=== PATIENT | male | born 1950 | race Caucasian/White ===

== ENCOUNTER 2018-11-07 21:27 | Inpatient (IN) ==
[2018-11-08] MEDS ORDERED: NS 500 ML IV ONE ×2 (00:11→12:15)
[2018-11-08] MEDS ORDERED: SODIUM CHLORIDE 0.9% INJ ONE (00:12)
[2018-11-08] MEDS ORDERED: PROTONIX IV ONE (00:12)
[2018-11-08 01:06] LABS: BASO# 0.05 X1000 (0.0-0.2); BASO% 0.2 % (0.0-0.8); EOS# 0.13 X1000 (0.0-0.7); EOS% 0.6 % (0.0-10.0); HEMATOCRIT 20.4 % (42.0-52.0); HEMOGLOBIN 6.4 g/dL (14.0-18.0); IMM GRAN% 0.5 % (0.0-0.5); LYMPH% 13.5 % (20.5-51.1); MCH 26.6 PG (27-31); MCHC 31.4 g/dL (33-37); MCV 84.6 FL (81-99); MONO# 1.95 X1000 (0.11-0.59); MONO% 9.7 % (1.7-9.3); MPV 11.1 FL (7.4-10.4); NEUT# 15.08 X1000 (1.4-6.5); NEUT% 75.5 % (42.2-75.2); PLT 96 X1000 (130-400); RBC 2.41 XMIL (4.7-6.1); RDW 16.8 % (11.5-14.5); WBC 20.01 X1000 (4.8-10.8)
[2018-11-08 01:15] LABS: INR 1.25; PROTIME 16.7 Seconds (11.0-16.0)
[2018-11-08 01:16] LABS: PTT 32.1 Seconds (22.3-41.8)
[2018-11-08 01:45] LABS: ALB/GLOB RATIO 1.1; ALBUMIN 3.2 g/dL (3.5-5.0); CALCIUM 9.9 mg/dL (8.8-10.2); CREATININE 1.6 mg/dL (0.7-1.2); POTASSIUM 4.5 mmol/L (3.5-5.1); TOTAL BILIRUBIN 0.62 mg/dL (0.20-1.00); TOTAL PROTEIN 6.1 g/dL (6.3-8.3)
[2018-11-08] MEDS ORDERED: NS 500 ML ONE ×2 (02:10→11:01)
--- NOTE | 2018-11-08 03:26 | HISTORY AND PHYSICAL ---
PRIMARY CARE PHYSICIAN: Michael Quan MD. CHIEF COMPLAINT: Dark blood x1 day. HISTORY OF PRESENTING ILLNESS: The patient is a 68-year-old male with a history of COPD, CHF, coronary artery disease, diabetes mellitus type 2, who had presented to emergency department with a 1-day history of noticing dark blood in his stools. He states that there was a lot of quantity of it and he felt weak. He stated recently he began drinking heavily again. He was evaluated in the emergency department. Due to his presenting symptoms he will require admission for further management. At the time of my examination he denied any headache, fever, chills, chest pain or shortness of breath, but complained of dark blood and not feeling well. The patient was ordered to also receive 2 units of packed red blood cells. PAST MEDICAL HISTORY: Includes COPD, CHF, coronary artery disease, diabetes mellitus type 2, hyperlipidemia. PAST SURGICAL HISTORY: Coronary bypass, hernia repair, hemorrhoidectomy, tonsillectomy, coronary stent. ALLERGIES: No known drug allergies. CURRENT MEDICATIONS: Include Xanax 1 mg p.o. daily, ferrous sulfate 324 mg p.o. daily, lisinopril 10 mg p.o. daily, metoprolol 50 mg p.o. daily, Nadolol 20 mg p.o. daily, omeprazole 40 mg p.o. daily, pravastatin 20 mg p.o. at bedtime, Sertraline 50 mg p.o. daily, spironolactone 25 mg p.o. daily. SOCIAL HISTORY: A 50+ pack-year history of smoking. History of alcohol abuse. Denies any illicit drug use. FAMILY HISTORY: No history of coronary disease. REVIEW OF SYSTEMS: Fourteen point review of system is as per the HPI. Other systems negative. PHYSICAL EXAMINATION: GENERAL: A cooperative friendly male. He is resting comfortably now. VITAL SIGNS: Temperature is 97.4 degrees, pulse 95, respirations 20, blood pressure 100/53. HEENT: Atraumatic and normocephalic. Extraocular movements intact. PERRLA. NECK: No masses. CHEST: Clear to auscultation. CARDIOVASCULAR: Regular rate and rhythm. ABDOMEN: Soft. Positive bowel sounds. EXTREMITIES: No edema. NEURO: He is awake, alert and oriented x3. GENITOURINARY: No bladder distention. SKIN: Warm. LABORATORIES AND STUDIES: Sodium 138, potassium 4.5, chloride 97, CO2 is 19, BUN is 70, creatinine is 1.6, glucose is 156. WBC 20.01, hemoglobin 6.4, hematocrit 20.4, platelets 96,000. ASSESSMENT: The patient is a 68-year-old male with a history of chronic obstructive pulmonary disease, congestive heart failure, coronary artery disease, diabetes mellitus type 2, who had presented to the emergency department with a 1-day history of having dark blood in his stools. He was evaluated in the emergency department and he was found to be anemic and he was started on blood transfusion. He will require admission for further management. 1. Upper gastrointestinal bleed. 2. Coronary artery disease. 3. Chronic obstructive pulmonary disease. 4. Diabetes mellitus type 2. PLAN: 1. We will admit the patient to medical floor with telemetry. 2. We will keep the patient NPO and continue with blood transfusions. 3. We will consult Gastroenterology. 4. We will continue with DuoNebs p.r.n. 5. We will monitor blood glucose, put the patient on sliding scale insulin regimen. 6. We will put patient on DVT prophylaxis with SCDs. 7. We will continue to follow, reassess and make further recommendation based on the patient's clinical course. cc: Matthew Fitzgerald MD
[2018-11-08] MEDS ORDERED: PROTONIX IV SCH (03:57)
[2018-11-08] MEDS ORDERED: SODIUM CHLORIDE 0.9% INJ SCH (03:57)
--- NOTE | 2018-11-08 06:21 | PROVIDER DOCUMENTATION ---
This chart was entered by Yvonne Sloan Scribe, acting as scribe for Evie Marcano MD. HPI-Abdominal Pain/GI Problem - General Chief Complaint: GI Bleed Stated Complaint: PASSING BLOOD Time Seen by Provider: 11/08/18 00:01 Source: patient Allergies/Adverse Reactions: Patient Allergies Allergy/AdvReac Type Severity Reaction Status Date / Time No Known Allergies Allergy Verified 04/22/15 09:56 Home Medications: Home Medication List Medication Instructions Recorded Confirmed Last Taken Type Ferrous Sulfate 1 tab PO DAILY 04/22/15 06/08/17 06/09/17 05:10 History Lisinopril 10 mg PO DAILY 04/22/15 11/08/18 06/08/17 21:00 History Pravastatin Sodium 20 mg PO HS 04/22/15 11/08/18 06/08/17 21:00 History Sertraline HCl 50 mg PO DAILY 04/22/15 11/08/18 06/09/17 05:10 History Lactulose 30 ml PO BID #473 ml 04/27/15 06/08/17 06/09/17 05:10 Rx Nadolol [Corgard] 20 mg PO DAILY #30 tablet 04/27/15 06/08/17 06/09/17 05:10 Rx Spironolactone [Aldactone] 25 mg PO DAILY #30 tablet 04/27/15 11/08/18 06/09/17 05:10 Rx Alprazolam 1 mg PO DAILY 06/08/17 11/08/18 06/09/17 05:10 History Metoprolol [Lopressor] 50 mg PO DAILY 06/08/17 11/08/18 06/09/17 05:10 History Omeprazole 40 mg PO DAILY 06/08/17 11/08/18 06/09/17 05:10 History Metformin [Glucophage] 500 mg PO WBREAKFAST 11/08/18 11/08/18 Unknown History - History of Present Illness-ABD Nature of Presenting Problems: 68 yom c/o hematemsis and rectal bleeding unsure of when starting. pt has dark, tar stool. pt also rpts falling x 7 today. pt is not good historian. pt has hx of copd, chf, cad. pt is alcoholic 4-5 beers/day. smokes 1/2ppd. pt [facility]. Review of Systems - Adult - REVIEW OF SYSTEMS - ADULT Constitutional: reports: no symptoms reported. denies: chills, fever, fatique Eyes: reports: no symptoms reported Ears, Nose, Mouth & Throat: reports: no symptoms reported. denies: ear pain, nose pain, throat pain Cardiovascular: reports: no symptoms reported. denies: chest pain, heart murmur, poor circulation Respiratory: reports: no symptoms reported. denies: cough, shortness of breath, wheezing Gastrointestinal: reports: see HPI, hematemesis, rectal bleeding. denies: abdom inal pain, constipation, diarrhea Genitourinary: reports: no symptoms reported Musculoskeletal: reports: no symptoms reported Integumentary: reports: no symptoms reported Neurological: reports: no symptoms reported. denies: dizziness/vertigo, headache/migraines, loss of balance Psychiatric: reports: no symptoms reported Endocrine: reports: no symptoms reported Hematologic/Lymphatic: reports: no symptoms reported Allergic/Immunologic: reports: no symptoms reported All Other Systems: Reviewed and Negative Past History - Adult - PAST MEDICAL HISTORY-ADULT Review of Records: reports: Old Records Reviewed, Nursing Assessment Review, Medications Reviewed, Social history reviewed & non-contributory. Major Childhood Illnesses: reports: denies history Cardiovascular: reports: CAD, CHF, HTN Respiratory: reports: COPD Gastrointestinal: reports: denies history Obstetrical/Gynecological: reports: denies history Genitourinary: reports: denies history Musculoskeletal: reports: denies history Neurological: reports: denies history Endocrine/Immune: reports: Diabetes Other Conditions: reports: denies history - PRIOR SURGERIES/PROCEDURES Surgical/Procedure History: reports: cardiac stent, tonsillectomy, hernia repair - IMMUNIZATION STATUS Childhood Immunizations: See Nurse Assessment Flu Vaccine: See Nurse Assessment - FAMILY HISTORY Family History: reviewed, not pertinent - SOCIAL HISTORY Smoking: cigarettes, less than 1 pack/day Provider spent 3-5 mins advising pt. on dangers of tobacco.: Discussed manners to quit use, and f/u contacts for add'l counseling. Substance Use: alcohol Alcohol Use Frequency: every day Number of drinks per typical drinking period:: 3-4 drinks Physical Exam-General - PHYSICAL EXAM-ADULT Initial Vital Signs Reviewed: Yes - CONSTITUTIONAL General Appearance: appears well, alert, no apparent distress, obese. negative: slow to respond, obtunded, combative - EYES Eyes: PERRL/EOMI, pink conjunctivae - HEAD, EARS, NOSE, MOUTH & THROAT HENMT: normocephalic/atraumatic, moist mucous membranes, normal ENT inspection - NECK Neck: non-tender, full range of motion, supple, normal inspection - RESPIRATORY Respiratory: chest non-tender, lungs clear, normal breath sounds - CARDIOVASCULAR Cardiovascular: normal peripheral pulses, regular rate, rhythm - GASTROINTESTINAL (ABDOMEN) Abdominal Exam: normal bowel sounds, non tender, soft, no organomegaly, no pulsatile mass. negative: guarding, rigid, rebound - LYMPHATIC Lymphatic: no adenopathy - MUSCULOSKELETAL Back Exam: normal inspection, no CVA tenderness, no vertebral tenderness Extremity: normal range of motion, non-tender, normal inspection. negative: abnormal NV exam, calf tenderness, deformity Peripheral Pulses: radial (R): 2+, radial (L): 2+ - SKIN Integumentary: normal color, normal turgor, warm/dry - NEUROLOGIC Neurologic: grossly normal, no motor/sensory deficits - PSYCHIATRIC Psych/Mental Status: normal mood/affect, normal thought content, normal thought process, oriented x 3 Progress - PLAN OF CARE/RESULTS Progress/Plan/Lab Results: Vital Signs - 8 hr 11/07/18 21:33 Temperature 97.4 F L Pulse Rate 95 H Respiratory Rate 20 Blood Pressure 100/53 O2 Sat by Pulse Oximetry 98 Orders Category Date Time Status Cardiac Monitoring DIRECTED Care 11/08/18 00:11 Active CBC WITH DIFF [HEME] Stat Lab 11/08/18 00:11 Uncollected COMPREHENSIVE METABOLIC PANEL [CHEM] Stat Lab 11/08/18 00:12 Ordered PT [PROTIME WITH INR] [COAG] Stat Lab 11/08/18 00:15 Uncollected PTT [COAG] Stat Lab 11/08/18 00:14 Uncollected TYPE & SCREEN [BBK] Stat Lab 11/08/18 00:11 Uncollected 0.9% Sodium Chloride Inj [Ns] 500 ml Med 11/08/18 00:11 Discontinued IV As Directed mls/hr Pantoprazole [Protonix] Med 11/08/18 00:12 Discontinued 40 mg IV NOW ONE Sodium Chloride 0.9% Med 11/08/18 00:12 Discontinued 10 ml INJ NOW ONE Result Diagrams: 11/08/18 00:29 11/08/18 00:29 - CONSULTS/PCP/HOSPITALIST Notification #1 *Consult/PCP/Hospitalist*: Dr Fitzgerald Time Discussed: 01:19 Consult Disposition: Admit Departure - Departure Date of Disposition Decision: 11/08/18 Time of Disposition Decision: 01:18 DIAGNOSIS: Upper GI bleed Disposition: ADMITTED INPATIENT 09 Certified Medical Emergency: Emergent Condition: Critical - Critical Care Note This patient required my direct & personal management of CC.: Yes Total Time (mins): 31 Critical Care Statement: This patient required my direct personal management to treat or rule out processes, the absence of which, could potentiallly result in sudden, clinically significant life or limb threatening deterioration. Attestation - Physician/ KYLE Attestation Patient care was provided by Advanced Practice Provider:: No The physician spent face to face time with patient:: Yes Advanced Practice Provider documentation review:: Supervising physician onsite and consulted in the evaluation and care of this patient. The physician did have a face to face encounter with the patient. This chart was documented by the indicated scribe, (Yvonne Sloan Scribe) and accurately reflects the services I performed and decisions made by me, Evie Marcano MD, as attested by the provider's signature.
[2018-11-08] MEDS: HUMULIN R SUBQ SCH ×4 (06:25→22:15)
[2018-11-08] MEDS: DUONEB (A & A) INH PRN ×2 (07:50→19:45)
[2018-11-08] MEDS: SANDOSTATIN 500 MICROGM in D5W 100 ML IV SCH (08:54)
[2018-11-08] MEDS: NS 1,000 ML IV SCH (08:55)
[2018-11-08 09:01] LABS: BASO# 0.04 X1000 (0.0-0.2); BASO% 0.2 % (0.0-0.8); EOS# 0.15 X1000 (0.0-0.7); EOS% 0.6 % (0.0-10.0); HEMATOCRIT 20.8 % (42.0-52.0); HEMOGLOBIN 6.8 g/dL (14.0-18.0); IMM GRAN# 0.19 X1000 (0.0-0.04); IMM GRAN% 0.8 % (0.0-0.5); LYMPH# 5.06 X1000 (1.2-3.4); LYMPH% 20.1 % (20.5-51.1); MCHC 32.7 g/dL (33-37); MCV 85.6 FL (81-99); MONO# 3.15 X1000 (0.11-0.59); MONO% 12.5 % (1.7-9.3); MPV 10.8 FL (7.4-10.4); NEUT# 16.57 X1000 (1.4-6.5); NEUT% 65.8 % (42.2-75.2); PLT 199 X1000 (130-400); RBC 2.43 XMIL (4.7-6.1); RDW 16.2 % (11.5-14.5); WBC 25.16 X1000 (4.8-10.8)
[2018-11-08] MEDS ORDERED: BENTYL PO PRN (09:21)
[2018-11-08] MEDS ORDERED: ROBAXIN PO PRN (09:21)
[2018-11-08] MEDS ORDERED: SALINE LOCK IV FLUID XX ONE (09:21)
[2018-11-08] MEDS ORDERED: ATARAX PO PRN (09:21)
[2018-11-08 09:23] LABS: BANDS 2 % (0-1); LYMPHS 16 % (21-51); MONO 2 % (1-9); SEGS 80 % (42-75)
[2018-11-08] MEDS: LIBRIUM PO SCH ×2 (10:07→17:57)
[2018-11-08] MEDS: M.V.I.-12 10 ML, FOLIC ACID 1 MG, MAGNESIUM SULFATE 1 GM, THIAMINE 100 MG in NS 1,000 ML IV ONE ×2 (10:07→16:21)
--- NOTE | 2018-11-08 12:20 | EKG Report ---
Test Performed on : 11/08/2018 11:40:49 AM Test Reason : procdure ordered Blood Pressure : / mmHG Vent. Rate : 083 BPM Atrial Rate : 083 BPM P-R Int : 188 ms QRS Dur : 098 ms QT Int : 392 ms P-R-T Axes : 071 041 031 degrees QTc Int : 460 ms Normal sinus rhythm. Inferior infarct (cited on or before 22-APR-2015) Abnormal ECG When compared with ECG of 08-JUN-2017 14:35, Vent. rate has increased BY 27 BPM Confirmed by Lopez SERRANO, Denilson Reddy ([id number]) on 11/08/2018 12:49:29 PM
[2018-11-08] MEDS ORDERED: QUELICIN (DOSE) ONE (13:09)
[2018-11-08] MEDS ORDERED: DIPRIVAN 1% ONE (13:09)
[2018-11-08] MEDS ORDERED: XYLOCAINE-MPF 2% ONE (13:09)
--- NOTE | 2018-11-08 13:27 | PROGRESS NOTE ---
DATE: 11/08/2018 BRIEF PROGRESS NOTE: The patient still with melena, but no further coffee-grounds emesis. Only minimal improvement in hemoglobin and hematocrit after 2 units transfused overnight, so we will transfuse [address] Rhodes came to see the patient, but patient refused to be seen by Dr. Rhodes, so seeking other Gastroenterology consultation. The patient will likely need EGD +/- colonoscopy in the immediate future. We will continue to trend blood counts and transfuse as needed. Hemodynamically stable. Abdominal exam benign. The patient did experience some mild alcohol withdrawal symptoms with tremulousness and tachycardia. Now on Tranxene and this appears to be improved.
[2018-11-08] MEDS ORDERED: AMIDATE ONE (13:34)
[2018-11-08] MEDS ORDERED: ZOFRAN ONE (13:51)
[2018-11-08] MEDS ORDERED: EPHEDRINE ONE (14:16)
[2018-11-08] MEDS ORDERED: NEO-SYNEPHRINE ONE (14:16)
--- NOTE | 2018-11-08 14:30 | GASTROENTEROLOGY CONSULTATION ---
DATE: 11/08/2018 REASON FOR CONSULTATION: Hematemesis, melena, anemia. HISTORY OF PRESENT ILLNESS: This is a 68-year-old, male who reports onset of symptoms on Thursday. He has noticed episodes of black emesis and black stool. He has reported dizziness and lightheadedness. He states he fell 7 times yesterday. He states he also fell 1 week ago. He reports daily alcohol use, usually 4 to 5 beers daily along with additional moonshine. He denies NSAID use. If he takes anything for pain, he states he usually takes Tylenol. He does not report significant abdominal pain but has reported some upper pain related to his recent falls. He has had EGD and colonoscopy in the past. He has seen Dr. Rhodes in the past. He states he had a colonoscopy in 2016. He had a hemorrhoidectomy by Dr. Mccoy in May of 2017. PAST MEDICAL HISTORY: COPD, congestive heart failure, coronary artery disease, diabetes type 2, hyperlipidemia. PAST SURGICAL HISTORY: Coronary artery bypass, hernia repair, hemorrhoidectomy, tonsillectomy, coronary artery stents. ALLERGIES: No known drug allergies. HOME MEDICATIONS: Alprazolam 1 mg daily, ferrous sulfate 1 tablet daily, lactulose 30 mg twice a day, lisinopril 10 mg daily, Glucophage 500 mg with breakfast, Lopressor 50 mg daily, nadolol 20 mg daily, omeprazole 40 mg daily, pravastatin 20 mg every night, sertraline 50 mg daily, Aldactone 25 mg daily. SOCIAL HISTORY: Smokes half a pack of cigarettes daily. Reports daily alcohol use. He is . He states he has been six times. He is two sons. REVIEW OF SYSTEMS: Per history of present illness. PHYSICAL EXAMINATION: Vital Signs: Temperature 98.0 degrees, pulse 86, respirations 21, blood pressure 121/47. General: Patient is awake and alert. No acute distress. Currently denies chest pain or shortness of breath. HEENT: Normocephalic and atraumatic. Pupils equal, round, and reactive to light. Sclerae nonicteric. Cardiovascular: Regular rate and rhythm. Abdomen: Obese. Otherwise, soft. Positive bowel sounds. Mild tenderness, worse on the right side. Extremities: No lower extremity edema noted. Neurological: Cranial nerves 2-12. Patient is awake, alert, and oriented to person, place, and time. DIAGNOSTIC RESULTS: Laboratory: Hematology: WBC 25.16, hemoglobin 6.8, hematocrit 20.8, MCV 85.6, platelets 199,000. Coagulation: Prothrombin time 16.7, INR 1.25, PTT 32.1. Chemistry: Sodium 138, potassium 4.5, chloride 97, CO2 19, BUN 70, creatinine 1.6, glucose 156. Total bilirubin 0.62, AST 28, ALT 14, alkaline phosphatase 76. ASSESSMENT AND PLAN: 1. Upper gastrointestinal bleed. 2. Hematemesis and melena. 3. Anemia. Patient has received packed red blood cells. He does have two more units ordered for transfusion due to his active gastrointestinal bleed. We will proceed with an esophagogastroduodenoscopy today. Keep nothing per oral. Further plans to be made according to findings. I have discussed the procedure along with benefits and risks with the patient. He wishes to proceed. I have discussed this case with Dr. Carrero. Thank you for this consultation. Dictated by LIZ Guidry for Tutu Carrero MD cc: LIZ Zavala MD
--- NOTE | 2018-11-08 18:06 | OPERATIVE NOTE ---
PROCEDURE DATE: 11/08/2018 PROCEDURE: Esophagogastroduodenoscopy and hemorrhage control, esophageal variceal banding. MEDICATION USED: General anesthesia. PREOPERATIVE DIAGNOSES: 1. Acute gastrointestinal bleed. 2. Anemia secondary gastrointestinal bleed. POSTOPERATIVE DIAGNOSES: 1. Esophageal varices grade 3-4 with red spot, bands applied. 2. Gastritis. 3. Possible gastric varices. HISTORY: This 68-year-old gentleman who is a heavy drinker was admitted to the hospital with a history of hematemesis and was found to have profound anemia. EGD was done for diagnostic as well as therapeutic purposes. DESCRIPTION OF PROCEDURE: Informed consent was obtained from the patient. Procedure, risks, benefits, alternatives were explained in layman's terms and he understood. All of the pertinent questions were answered. The patient was brought to the endoscopy unit and was premedicated as per Anesthesia. He was intubated and general anesthesia was used to protect his airways. While he was lying in left lateral position, the gastroscope was introduced into the posterior pharynx and advanced under direct vision into the esophagus, where I saw a 3 columns of esophageal varices which were grade 3-4. There was a red spot on 1 of the varix, but no active bleeding was seen in the esophagus. Some altered blood was seen regurgitating from the stomach. There was hyperemia noted in the distal esophagus around the GE junction which was about 39 cm from the incisor. The scope was then passed through the esophagus and into the stomach where the altered blood was pooled in his fundus. Vigorous irrigation and suctioning was employed to cleanse the stomach to its entirety. I did see a gastric polyp and the rugae folds were thickened in the fundus and body suggestive of gastric varices, but I did not see any evidence of active bleeding from those varix. Otherwise, hyperemia noted in the distal stomach too. The scope was then passed through the normal pylorus, into the duodenal bulb, and then second portion of duodenum which appeared to be normal but again, altered blood was seen coating the mucosa. The scope was withdrawn and the esophageal variceal banding apparatus was applied onto the scope. The scope was then introduced back into the esophagus where 4 bands were deployed in the varices adequately, 1 including the red spot also. The scope was withdrawn. The patient tolerated the procedure well. No complications noted. Patient was transferred to the recovery area in a stable condition. IMPRESSION: 1. Bleeding esophageal varices, bands applied. 2. Gastric varices. 3. Portal gastropathy suggested by hyperemia in the stomach. RECOMMENDATION: I would start him on liquid diet for now. Continue Sandostatin drip at least for another 24 hours, stop after that. Decrease his Protonix IV to once every day rather than every 12 hours and follow his hemoglobin and hematocrit, transfuse if necessary. In the meantime, we when start him, we need to put him on nadolol as well as a 2 g sodium diet. cc: Tutu Carrero MD
[2018-11-08 21:29] LABS: HEMATOCRIT 23.2 % (42.0-52.0); HEMOGLOBIN 7.6 g/dL (14.0-18.0)
[2018-11-09] MEDS: NS 1,000 ML IV SCH (00:37)
[2018-11-09] MEDS: LIBRIUM PO SCH ×3 (01:38→16:32)
[2018-11-09] MEDS: SANDOSTATIN 500 MICROGM in D5W 100 ML IV SCH (06:33)
[2018-11-09] MEDS: HUMULIN R SUBQ SCH ×4 (06:33→21:04)
[2018-11-09 07:37] LABS: CALCIUM 7.8 mg/dL (8.8-10.2); CREATININE 1.7 mg/dL (0.7-1.2); POTASSIUM 4.7 mmol/L (3.5-5.1)
[2018-11-09 08:29] LABS: BASO# 0.03 X1000 (0.0-0.2); BASO% 0.2 % (0.0-0.8); EOS# 0.22 X1000 (0.0-0.7); EOS% 1.5 % (0.0-10.0); HEMATOCRIT 20.4 % (42.0-52.0); HEMOGLOBIN 6.8 g/dL (14.0-18.0); IMM GRAN# 0.05 X1000 (0.0-0.04); IMM GRAN% 0.3 % (0.0-0.5); LYMPH# 2.22 X1000 (1.2-3.4); LYMPH% 14.9 % (20.5-51.1); MCH 28.7 PG (27-31); MCHC 33.3 g/dL (33-37); MCV 86.1 FL (81-99); MONO# 1.63 X1000 (0.11-0.59); MPV 10.4 FL (7.4-10.4); NEUT# 10.72 X1000 (1.4-6.5); NEUT% 72.1 % (42.2-75.2); PLT 105 X1000 (130-400); RBC 2.37 XMIL (4.7-6.1); RDW 16.5 % (11.5-14.5); WBC 14.87 X1000 (4.8-10.8)
[2018-11-09] MEDS ORDERED: SODIUM CHLORIDE 0.9% INJ SCH (09:00)
[2018-11-09] MEDS: PROTONIX IV SCH (10:01)
[2018-11-09] MEDS ORDERED: NS 500 ML ONE (10:39)
--- NOTE | 2018-11-09 12:20 | PROGRESS NOTE ---
DATE: 11/09/2018 INTERVAL HISTORY: The patient still with no vomiting. Status post EGD yesterday showing multiple esophageal varices which were banded, also with gastritis and some gastric varices as well. Blood counts this morning again low. Patient states he did had have a bowel movement but did not note whether or not they were still melenic. No new complaints. REVIEW OF SYSTEMS: A 12-point review of systems negative except as per interval history. LABS: WBC 14.8, hemoglobin 6.8, hematocrit 20.4, platelets 105,000. Sodium 134, potassium 4.7, bicarb 21, BUN 77, creatinine 1.7, glucose 170. VITALS: T-max 98.5 degrees, pulse 87, respirations 22, blood pressure 129/47, O2 saturation 99 on room air. PHYSICAL EXAMINATION: General: No acute distress. Vitals: As above. HEENT: Normocephalic, atraumatic. Moist mucous membranes. No cervical adenopathy. Cardiovascular: Regular rate and rhythm. No murmurs, rubs, or gallops. Pulmonary: Clear to auscultation bilaterally. No wheezing, rales, or rhonchi. Abdomen: Soft, nontender. Bowel sounds positive. Extremities: Peripheral pulses intact. No clubbing, cyanosis, or edema. Neurologic: Cranial nerves grossly intact. No focal deficits. Psychiatric: Normal mood and affect. Awake, alert, oriented x3. Skin: No new rashes or lesions noted. ASSESSMENT AND PLAN: 1. Acute posthemorrhagic anemia secondary to an upper gastrointestinal bleed. Esophageal varices, gastritis, gastric varices. The patient is status post esophagogastroduodenoscopy yesterday with identification of banding of esophageal varices. It also showed gastritis and gastric varices. Gastroenterology wants to keep him on Sandostatin for another day. Blood count is still trending down. Uncertain if this is continued bleeding or equilibration from blood already lost. We will transfuse 2 additional units and follow blood counts. If blood counts continue to trend down, then repeat esophagogastroduodenoscopy and/or colonoscopy may be necessary. Gastroenterology following and assisting. Continue proton pump inhibitor. 2. Likely acute kidney injury. Creatinine elevated to 1.6 on admission, essentially unchanged to 1.7 today. No recent labs for comparison but last creatinine in 2017 was normal. Continue to hydrate. Transfusion as above. Monitor kidney function. 3. Diabetes mellitus, reasonable control on current regimen. Continue to monitor glucose. 4. Chronic obstructive pulmonary disease. No sign of exacerbation at this time. Continue to monitor. 5. Coronary artery disease. No aspirin at this time secondary to a gastrointestinal bleed. 6. Alcohol abuse and likely mild withdrawal. The patient initially had some withdrawal symptoms, tachycardia, tremulousness. His heart rate still becomes mildly elevated occasionally but it has been largely controlled with tranxene. Continue to monitor. 7. Hyperlipidemia. We will likely restart statin on discharge. MTDD
[2018-11-09] MEDS: CARAFATE LIQUID PO SCH ×2 (14:18→21:17)
--- NOTE | 2018-11-09 15:16 | GASTROENTEROLOGY PROGRESS NOTE ---
DATE: 11/09/2018 SUBJECTIVE: Patient reports having 1 bowel movement during the night. He has denied hematemesis per nurse report. Bowel movement on hourly shift was black tarry. Patient had drop in his hemoglobin and hematocrit and is receiving an additional 2 units of packed red blood cells. Patient had an EGD on 11/08/2018 with findings of esophageal varices grade 3-4 with bleeding noted. Bands applied. Also findings of gastritis and possible gastric varices. OBJECTIVE: Vital signs: Temperature 98.0 degrees, pulse 87, respirations 22, blood pressure 129/47. General: Patient is awake, alert, no acute distress. LABORATORY: Hematology: WBC 14.87 hemoglobin 6.8, hematocrit 20.4, MCV 86.1, platelet 105,000. Chemistry sodium 134, potassium 4.7, chloride 102, CO2 21, BUN 77, creatinine 1.7 glucose 170. ASSESSMENT AND PLAN: 1. Upper gastrointestinal bleeding. 2. Esophageal varices with bleeding and bands applied. 3. Anemia. Patient has had drop in his hemoglobin and hematocrit again this morning. He is having 2 units of additional packed red blood cells transfused. 4. Alcohol abuse. Continue delirium tremens precautions. PLAN: We will continue to follow. Monitor hemoglobin and hematocrit and transfuse further packed red blood cells as needed. Continue PPI, will add Carafate. Further plans to be made according to his progress. I have discussed this case with Dr. Carrero. Dictated by LIZ Guidry for Tutu Carrero MD cc: LIZ Zavala MD [facility]
[2018-11-09 18:37] LABS: HEMATOCRIT 25.5 % (42.0-52.0); HEMOGLOBIN 8.7 g/dL (14.0-18.0)
[2018-11-10] MEDS ORDERED: NS 1,000 ML ONE (02:07)
[2018-11-10 02:19] LABS: BASO# 0.05 X1000 (0.0-0.2); BASO% 0.2 % (0.0-0.8); EOS# 0.22 X1000 (0.0-0.7); EOS% 0.7 % (0.0-10.0); HEMATOCRIT 22.4 % (42.0-52.0); HEMOGLOBIN 7.4 g/dL (14.0-18.0); IMM GRAN% 0.7 % (0.0-0.5); LYMPH# 3.16 X1000 (1.2-3.4); LYMPH% 10.4 % (20.5-51.1); MCH 28.5 PG (27-31); MCV 86.2 FL (81-99); MONO# 3.06 X1000 (0.11-0.59); MPV 10.9 FL (7.4-10.4); NEUT# 23.83 X1000 (1.4-6.5); PLT 151 X1000 (130-400); RDW 15.6 % (11.5-14.5); WBC 30.52 X1000 (4.8-10.8)
[2018-11-10] MEDS ORDERED: ZOSYN 3.375 GM in NS 50 ML IV ONE (02:24)
[2018-11-10] MEDS: LIBRIUM PO SCH (02:39)
[2018-11-10] MEDS: CARAFATE LIQUID PO SCH ×3 (02:40→13:04)
[2018-11-10] MEDS: SANDOSTATIN 500 MICROGM in D5W 100 ML IV SCH (02:55)
[2018-11-10] MEDS ORDERED: ZOFRAN IV PRN (03:54)
[2018-11-10] MEDS ORDERED: ATIVAN IV PRN (04:24)
[2018-11-10 05:53] LABS: HEMATOCRIT 20.6 % (42.0-52.0); HEMOGLOBIN 6.7 g/dL (14.0-18.0)
[2018-11-10] MEDS: HUMULIN R SUBQ SCH ×2 (06:20→13:03)
[2018-11-10 06:24] LABS: ALLEN TEST YES; BE -5.7 mmoll (-3.0-3.0); BLOOD TYPE ARTERIAL; HCO3-(ACT) 20.5 mmoll (20.0-26.0); METHB 0.9 % (0.0-1.5); O2(CT) 10.5 mL/dL (15.0-23.0); O2HB 96.6 % (95.0-99.0); PCO2(98.6) 27 mmHg (35-45); PO2(98.6) 90 mmHg (60-100); SAMPLE BLOOD; SAO2 99.8 % (95.0-100.0); THB 7.6 g/dL (11.5-17.4); pH(98.6) 7.43 (7.35-7.45)
[2018-11-10 06:25] LABS: MODALITY CANNULA
[2018-11-10] MEDS ORDERED: VANCOMYCIN IV PER PHARMACY MISC SCH (07:30)
[2018-11-10] MEDS: DUONEB (A & A) INH PRN ×2 (07:46→11:28)
--- NOTE | 2018-11-10 08:04 | Diag Imaging Result Doc PS360 ---
EXAM: CHEST-PORTABLE 11/10/2018 HISTORY: aspirated TECHNIQUE: AP portable at 0227 COMMENT: There is ill-defined opacity in the left lateral lung base. The inspiration is less optimal than on 06/09/2017, however the possibility of atelectasis or pneumonia in this location cannot be excluded. IMPRESSION: Questionable atelectasis versus pneumonia left lower lobe. Electronically signed by Neil Waddell 11/10/2018 8:02 AM
[2018-11-10] MEDS: ZOSYN 2.25 GM in NS 50 ML IV SCH ×2 (08:54→15:52)
[2018-11-10] MEDS: PROTONIX IV SCH (08:54)
[2018-11-10 09:52] LABS: CALCIUM 7.3 mg/dL (8.8-10.2); CREATININE 1.6 mg/dL (0.7-1.2)
[2018-11-10] MEDS ORDERED: VANCOMYCIN 2,200 MG in NS 500 ML IV ONE (10:00)
[2018-11-10] MEDS ORDERED: VERSED ONE (10:15)
[2018-11-10] MEDS ORDERED: QUELICIN ONE (10:16)
[2018-11-10] MEDS ORDERED: VERSED IV ONE (10:23)
[2018-11-10] MEDS ORDERED: QUELICIN IV ONE (10:23)
[2018-11-10 11:05] LABS: POTASSIUM 5.9 mmol/L (3.5-5.1)
--- NOTE | 2018-11-10 12:07 | Diag Imaging Result Doc PS360 ---
EXAM: CHEST-PORTABLE 11/10/2018 HISTORY: ET tube placement TECHNIQUE: AP portable at 1117 COMMENT: There is an endotracheal tube with its tip at thoracic inlet. There continues to be some opacification in the left costophrenic angle which may be due to atelectasis or pneumonia. This was not present on 06/09/2017. IMPRESSION: Minimal atelectasis versus pneumonia left lower lobe. Electronically signed by Neil Waddell 11/10/2018 12:05 PM
--- NOTE | 2018-11-10 12:12 | OPERATIVE NOTE ---
PROCEDURE DATE: 11/10/2018 PROCEDURE PERFORMED: Esophagogastroduodenoscopy. PREOPERATIVE DIAGNOSES: 1. Acute gastrointestinal bleed. 2. Anemia secondary to gastrointestinal bleed. POSTOPERATIVE DIAGNOSIS: Gastric varices, esophageal varices, status post banding. MEDICATION USED: General anesthesia. SCOPE USED: Pentax gastroscope. HISTORY: A 68-year-old gentleman admitted to hospital on the 08 of November with acute GI bleed. EGD done earlier showed evidence of gastric varices and esophageal varices. There was a red spot on the esophageal varices. Four bands were applied and he did well until this morning. At 4 a.m., he had another episode of GI bleed and was transferred to the ICU. So far, during his hospitalization, he has received 6 units of packed RBC. EGD was done now to identify the source of his bleeding and treat accordingly. DESCRIPTION OF PROCEDURE: Informed consent could not be obtained from the patient's family members. Two doctor consent was gathered. The patient was transferred to the ICU for emergent EGD. After adequate sedation, while he was lying in the left lateral position, intubated, then the gastroscope was introduced into the posterior pharynx and advanced under direct vision into the esophagus where the esophageal varices were seen. The bands, a couple of them were intact. The other two appeared to have fallen off but the area was scarce and there was no evidence of bleeding from those spots. The scope was then passed to the stomach where large blood and blood clot was noted occupying the fundus. Vigorous irrigation and suctioning was employed to cleanse the area as much as I could but, unfortunately, I was not able to clean it completely to see where the bleeding was coming from, most likely gastric varices that were noticed earlier. The scope was passed through the second portion duodenum. Again, altered blood was noted coating the distal stomach as well as duodenal bulb. The scope was then withdrawn. During this process, I did receive a call from [facility]. I explained to them the findings of the patient. They have accepted the patient for a TIPS procedure. IMPRESSION: Bleeding gastric varices, esophageal varices. PLAN: Plan will be to transfer to [facility] as soon as possible for a TIPS. cc: Tutu Carrero MD
--- NOTE | 2018-11-10 12:19 | Diag Imaging Result Doc PS360 ---
EXAM: CT HEAD W/O CONTRAST - 11/10/2018 HISTORY: Neuro change TECHNIQUE: CT head without contrast COMPARISON: None. FINDINGS: There is a well demarcated lacunar infarct which extends from the anterior medial basal ganglia to the nearby caudate nucleus on the right. The appearance suggests that this is chronic. There is no indication of recent infarct, although acute infarcts may not be immediately visible. There are atherosclerotic calcifications noted at the base the brain. There is no evidence of intracranial hemorrhage, mass effect, midline shift, or hydrocephalus. There is no evidence of skull fracture. IMPRESSION: Chronic appearing lacunar infarct at the basal ganglia/caudate nucleus region on the right. No visible acute intracranial abnormality. No hemorrhage or mass effect. This exam was performed using automated exposure control, adjustment of mA or kV according to patient size, and/or use of iterative reconstruction technique. Electronically signed by Latrell Russell 11/10/2018 12:17 PM
[2018-11-10 12:36] LABS: HEMATOCRIT 25.6 % (42.0-52.0); HEMOGLOBIN 8.2 g/dL (14.0-18.0)
--- NOTE | 2018-11-10 13:02 | DISCHARGE SUMMARY ---
ADMISSION DATE: 11/08/2018 DISCHARGE DATE: 11/10/2018 CONSULTANTS: Dr. Carrero GI. Accepting physician: Dr. Leon PROCEDURES: EGD with banding of varices x2. IMAGING: Chest x-ray, no acute process. Head CT read pending but no obvious bleed, stroke or mass when reviewed by me personally. LABORATORY DATA: Initial hemoglobin 6.7, up to 8.7 after transfusion, trended back down 6.8 and then declined despite transfusion to 6.4. ABG with pH 7.43, pCO2 27, PO2 90 on 44% FiO2. Sodium 135, potassium 5.9, BUN 67, creatinine 1.6, glucose 177, ammonia 459. DISCHARGE DIAGNOSES: 1. Bleeding varices with recurrent bleeding despite banding. 2. Alcohol abuse. 3. Acute kidney injury. 4. Diabetes. 5. Gastroesophageal reflux disease. 6. Hyperlipidemia. 7. Hepatic encephalopathy. 8. Acute blood loss anemia. HOSPITAL COURSE: Patient presented with melena and hematemesis. EGD was performed which showed esophageal varices, which was a new diagnosis for the patient. These were banded. Gastritis and gastric varices were also noted, but were not actively bleeding. Afterwards, the patient's blood count stabilized briefly before dropping again. He received a total of 7 units of packed red blood cells. On the day after his EGD, he had massive hematemesis. Afterwards, he had respiratory distress and decreased responsiveness. He was moved to the ICU. Chest x-ray did not show any acute process, but he was placed on broad-spectrum antibiotics with vancomycin and Zosyn empirically for possible aspiration pneumonia. He did require some oxygen, but was fairly stable on 3 L. This episode prompted repeat endoscopy, which showed ongoing bleeding of the varices which could not be controlled. GI then contacted [facility] for transfer for evaluation for possible TIPS. The patient remained completely obtunded after this initial event. Basic chemistry did not show any major electrolyte disturbances. ABG did not show any significant acidosis or hypercapnia, although his lactate was elevated at 6.3. CT head was obtained, read is pending at the time of this dictation, but no obvious bleed, mass, or stroke is identified on evaluation by me personally. Ammonia was obtained and was markedly elevated at 459, but the patient was transferred prior to initiation of lactulose therapy. Suspect hepatic encephalopathy as the cause of his encephalopathy, so TIPS may be problematic. The patient was also found to have a mild acute kidney injury on admission versus CKD. Last baseline creatinine was several years prior, but was normal at that time. On admission, creatinine was 1.6. He was given fluid and blood products, but creatinine remained stable and was still 1.6 on the day of discharge. Urine output remained reasonable. Due to failure to protect his airway, patient was intubated for his 2nd EGD and remained intubated afterwards. The patient did have very mild alcohol withdrawal symptoms during the hospitalization, but these were well controlled with Librium and minimal p.r.n. Ativan. He never had alena delirium tremens. Never had any hallucinations. DISCHARGE VITAL SIGNS: Temperature 98.5 degrees, pulse 103, respirations 31, blood pressure 113/37, O2 saturation 100% on ventilator. DISCHARGE DIET: N.p.o. DISCHARGE MEDICATIONS: 1. IV antibiotics with vancomycin and Zosyn. 2. Octreotide drip. 3. IV Protonix. 4. Blood products. 5. Ativan as needed for alcohol withdrawal. FOLLOW-UP AND PLAN: Patient is transferring to [facility] for consideration of TIPS versus other procedure for uncontrolled variceal bleeding. TIME SPENT: Greater than 30 minutes spent arranging discharge. [facility]
[2018-11-10 13:32] LABS: ALLEN TEST YES; BE -4.9 mmoll (-3.0-3.0); BLOOD TYPE ARTERIAL; HCO3-(ACT) 21.1 mmoll (20.0-26.0); METHB 1.2 % (0.0-1.5); O2(CT) 11.5 mL/dL (15.0-23.0); O2HB 96.4 % (95.0-99.0); PCO2(98.6) 29 mmHg (35-45); PO2(98.6) 87 mmHg (60-100); SAMPLE BLOOD; SAO2 98.8 % (95.0-100.0); SRATE 15 BPM; THB 8.4 g/dL (11.5-17.4); TVOL 550 mL; pH(98.6) 7.42 (7.35-7.45)
[2018-11-10 13:35] LABS: MODALITY VENTILATOR
[2018-11-10] MEDS ORDERED: ALBUTEROL 0.5% INH CONC FOR HYPERKALEMIA INH ONE (13:41)
[2018-11-10 14:23] VITALS: BP 118/60
[2018-11-10] MEDS ORDERED: MORPHINE IV ONE (14:46)
[2018-11-11] MEDS ORDERED: VANCOMYCIN 1,900 MG in NS 500 ML IV SCH (16:00)
== END 2018-11-10 15:40 | disposition short-term general hospital (02) | DRG 432 ==
LOC: ED 21:27 → SUATTDRO 11-08 02:40 → 3N 11-08 02:40 → ICU 11-10 04:10
PROVIDERS: ATTEND Internal Medicine
CPT/HCPCS: 31500; 36430; 70450; 71010; 71045; 80048; 80053; 82140; 82805; 82948; 85014; 85018; 85025; 85610; 85730; 86850; 86900; 86901; 86920; 93005; 93010; 94002; 94640; 94761; 96374; 99285; 99291; A9270; C9113; J0330; J2060; J2250; J2270; J2354; J2370; J2405; J2543; J3370; J3411; J3475; J7030; J7040; J7050; J7060; P9016; S0164; XXXXX